=== PATIENT | female | born 1930 | race Caucasian/White ===

== ENCOUNTER → 2016-11-16 | Outpatient (REF) | payer MEDICARE, OTHER ==
[~2016-11-16] MED LIST: /ESOM40CA PO; /FENO48TA PO; ACET650S3 PR; APAP325T PO; ATEN50TA2 PO; ATOR40TA PO; BISO10TA6 PO; BISO5TAB5 PO; CALC650T PO; COUM2TAB10 PO; DELT1TAB PO; DIGO0.12 PO; DULC10SU2 PR; ENEMENE6 PR; FLUO10CA8 PO; FLUO20CA8 PO; GLIP-163 PO; GUAISYP5 PO; HYDR12.55 PO; HYDR12.56 PO; IPRASOL4 NEB; LEVOTAB10 PO; LIPI20TA PO; LISI40TAB PO; LISI5TAB PO; METF850T PO; MILKSUS PO; MULTLIQ7 PO; MULTTAB48 PO; MYLASUS2 PO; NASA1SPR; NITR0.4S14 SL; OMEP40CA2 PO; SALI0.653; VITA10006 PO; VITA500T88 PO; WARF-18 PO; WARF10TA15 PO; WARF4TAB51 PO
[2016-11-16 09:47] LABS: INR 1.69
== END ==
LOC: SKLAB4 09:56
PROVIDERS: ATTEND Family Medicine
DX: I48.91 Unspecified atrial fibrillation (principal)

== ENCOUNTER → 2016-11-23 | Outpatient (REF) ==
[2016-11-23 09:16] LABS: INR 3.33
== END ==
LOC: SKLAB4 09:40
PROVIDERS: ATTEND Family Medicine
DX: I48.91 Unspecified atrial fibrillation (principal)

== ENCOUNTER → 2016-11-30 | Outpatient (REF) ==
[2016-11-30 08:33] LABS: INR 2.07
== END ==
LOC: SKLAB4 09:28
PROVIDERS: ATTEND Family Medicine
DX: I48.91 Unspecified atrial fibrillation (principal)

== ENCOUNTER → 2016-11-30 | Outpatient (REF) | payer MEDICARE, OTHER ==
--- NOTE | 2016-11-30 16:37 | REP ---
LEFT TIBIA FIBULA, FOUR VIEWS: HISTORY: Swelling. There is no acute fracture or dislocation. There is narrowing of the knee joint with associate chondrocalcinosis. There is narrowing of the medial and widening of the superolateral ankle joint space. Soft-tissue swelling is present. IMPRESSION: Degenerative change as described above. Signed by Jatin Schafer MD 11/30/2016 04:38 P
--- NOTE | 2016-12-01 13:08 | REP ---
Left ankle series: Four views. Repeat dictation. History: Swelling. Findings: There is anterolateral soft tissue swelling. There is osteoarthritic narrowing of the medial and posterior aspect of the ankle joint space. Diffuse osteoporosis is noted. Medial and lateral malleolar spurring and talar spurring are seen. No fracture is seen. Vascular calcification is noted and there is a plantar heel spur seen. Impression: No fracture seen. Diffuse osteoporosis and osteoarthritis noted. Soft tissue swelling. Signed by Alex Monk MD 12/01/2016 02:41 P
== END ==
LOC: SKLAB4 15:17
PROVIDERS: ATTEND Family Medicine
DX: R60.9 Edema, unspecified (principal); M81.0 Age-related osteoporosis without current pathological fracture; M17.9 Osteoarthritis of knee, unspecified

== ENCOUNTER → 2016-12-01 | Outpatient (REF) | payer MEDICARE, OTHER | LOC: SKLAB4 15:40 | PROVIDERS: ATTEND Family Medicine | DX: R41.0 Disorientation, unspecified (principal) ==

== ENCOUNTER → 2016-12-07 | Outpatient (REF) | payer MEDICARE, OTHER ==
[2016-12-07 08:50] LABS: INR 1.89
== END ==
LOC: SKLAB4 09:13
PROVIDERS: ATTEND Family Medicine
DX: I48.91 Unspecified atrial fibrillation (principal)

== ENCOUNTER → 2016-12-14 | Outpatient (REF) | payer MEDICARE, OTHER ==
[2016-12-14 08:00] LABS: INR 2.4
== END ==
LOC: SKLAB4 09:22
PROVIDERS: ATTEND Family Medicine
DX: Z51.81 Encounter for therapeutic drug level monitoring (principal); Z79.01 Long term (current) use of anticoagulants

== ENCOUNTER → 2016-12-19 | Outpatient (REF) | payer MEDICARE, OTHER | LOC: SKLAB4 08:14 | PROVIDERS: ATTEND Family Medicine | DX: R41.0 Disorientation, unspecified (principal) ==

== ENCOUNTER → 2016-12-21 | Outpatient (REF) | payer MEDICARE, OTHER ==
[2016-12-21 09:18] LABS: INR 2.34
== END ==
LOC: SKLAB4 11:20
PROVIDERS: ATTEND Family Medicine
DX: I48.91 Unspecified atrial fibrillation (principal); Z51.81 Encounter for therapeutic drug level monitoring; Z79.01 Long term (current) use of anticoagulants

== ENCOUNTER → 2016-12-28 | Outpatient (REF) | payer MEDICARE, OTHER ==
[2016-12-28 09:22] LABS: INR 2.49
== END ==
LOC: SKLAB4 08:50
PROVIDERS: ATTEND Family Medicine
DX: I48.91 Unspecified atrial fibrillation (principal); Z51.81 Encounter for therapeutic drug level monitoring; Z79.01 Long term (current) use of anticoagulants

== ENCOUNTER → 2017-01-04 | Outpatient (REF) | payer MEDICARE, OTHER ==
[2017-01-04 08:25] LABS: INR 3.03
== END ==
LOC: SKLAB4 09:25
PROVIDERS: ATTEND Family Medicine
DX: I48.91 Unspecified atrial fibrillation (principal); Z51.81 Encounter for therapeutic drug level monitoring; Z79.01 Long term (current) use of anticoagulants

== ENCOUNTER → 2017-01-11 | Outpatient (REF) | payer MEDICARE, OTHER ==
[2017-01-11 08:32] LABS: INR 2.98
== END ==
LOC: SKLAB4 09:22
PROVIDERS: ATTEND Family Medicine
DX: Z51.81 Encounter for therapeutic drug level monitoring (principal); Z79.01 Long term (current) use of anticoagulants; I48.91 Unspecified atrial fibrillation

== ENCOUNTER → 2017-01-12 | Outpatient (REF) | payer MEDICARE, OTHER | LOC: SKLAB4 21:13 | PROVIDERS: ATTEND Family Medicine | DX: R30.0 Dysuria (principal) ==

== ENCOUNTER → 2017-01-18 | Outpatient (REF) | payer MEDICARE, OTHER ==
[2017-01-18 08:21] LABS: INR 2.46
== END ==
LOC: SKLAB4 09:19
PROVIDERS: ATTEND Family Medicine
DX: I48.91 Unspecified atrial fibrillation (principal); Z51.81 Encounter for therapeutic drug level monitoring; Z79.01 Long term (current) use of anticoagulants

== ENCOUNTER → 2017-01-25 | Outpatient (REF) | payer MEDICARE, OTHER ==
[2017-01-25 10:57] LABS: INR 2.22
== END ==
LOC: SKLAB4 10:40
PROVIDERS: ATTEND Family Medicine
DX: I48.91 Unspecified atrial fibrillation (principal); Z51.81 Encounter for therapeutic drug level monitoring; Z79.01 Long term (current) use of anticoagulants

== ENCOUNTER → 2017-02-01 | Outpatient (REF) | payer MEDICARE, OTHER ==
[2017-02-01 09:47] LABS: INR 2.19
== END ==
LOC: SKLAB4 06:55
PROVIDERS: ATTEND Family Medicine
DX: I48.91 Unspecified atrial fibrillation (principal); Z51.81 Encounter for therapeutic drug level monitoring; Z79.01 Long term (current) use of anticoagulants; Z79.899 Other long term (current) drug therapy

== ENCOUNTER → 2017-02-02 | Outpatient (REF) | payer MEDICARE, OTHER ==
[2017-02-02 14:52] LABS: MEAN CORPUSCULAR HEMOGLOBIN 28.8 pg (27.0-33.0); MEAN CORPUSCULAR HGB CONC 31.7 g/dl (32.0-36.5); PLATELET COUNT, AUTOMATED 375 k/mm3 (150-450); RED CELL DISTRIBUTION WIDTH 14.1 % (11.5-14.5); WHITE BLOOD COUNT 19.1 K/mm3 (4.0-10.0)
[2017-02-02 15:08] LABS: ALBUMIN 2.6 GM/DL (3.2-5.2); ALBUMIN/GLOBULIN RATIO 0.79 (1.00-1.93); BILIRUBIN,TOTAL 0.3 MG/DL (0.2-1.0); CALCIUM LEVEL 7.8 MG/DL (8.8-10.2); CREATININE FOR GFR 1.78 MG/DL (0.55-1.02); GLOMERULAR FILTRATION RATE 28.6 (>32); POTASSIUM SERUM 4.6 MEQ/L (3.5-5.1); TOTAL PROTEIN 5.9 GM/DL (6.4-8.2)
[2017-02-02 15:50] LABS: BASO # 0.1 K/mm3 (0.0-0.2); BASO % 0.3 % (0.0-1.0); DIFF SLIDE NUMBER 232; EOS % 0.2 % (0.0-3.0); LARGE UNSTAINED CELL # 0.1 K/mm3 (0.0-0.4); LARGE UNSTAINED CELL % 0.6 % (0.0-4.0); LYMPH # 1.6 K/mm3 (1.5-4.5); LYMPH % 7.8 % (24.0-44.0); MONO # 1.1 K/mm3 (0.0-0.8); MONO % 5.5 % (0.0-5.0); NEUTROPHILS # 17.1 K/mm3 (1.8-7.7); NEUTROPHILS % 85.6 % (36.0-66.0)
== END ==
LOC: SKLAB4 11:20
PROVIDERS: ATTEND Family Medicine
DX: R50.9 Fever, unspecified (principal); Z79.899 Other long term (current) drug therapy

== ENCOUNTER → 2017-02-03 | Outpatient (REF) | payer MEDICARE, OTHER ==
--- NOTE | 2017-02-03 10:39 | REP ---
Clinical: Elevated temperature . Comparison: 10/28/2016 . Findings: The mediastinum and cardiac silhouette are stable and within normal limits for portable technique. The lung gilbert demonstrate chronic changes without acute consolidation, effusion, or pneumothorax. Skeletal structures are intact. Impression: Chronic stable changes. No acute cardiopulmonary process. Signed by Long Gayle MD 02/03/2017 10:30 A
== END ==
LOC: SKLAB4 09:19
PROVIDERS: ATTEND Family Medicine
DX: R50.9 Fever, unspecified (principal); I48.91 Unspecified atrial fibrillation; Z51.81 Encounter for therapeutic drug level monitoring; Z79.01 Long term (current) use of anticoagulants

== ENCOUNTER → 2017-02-03 | Outpatient (REF) | payer MEDICARE, OTHER | LOC: SKLAB4 03:20 | PROVIDERS: ATTEND Family Medicine | DX: I48.91 Unspecified atrial fibrillation (principal); Z51.81 Encounter for therapeutic drug level monitoring; Z79.01 Long term (current) use of anticoagulants ==

== ENCOUNTER → 2017-02-08 | Outpatient (REF) | payer MEDICARE, OTHER ==
[2017-02-08 09:20] LABS: INR 3.25
== END ==
LOC: SKLAB4 09:45
PROVIDERS: ATTEND Family Medicine
DX: I48.91 Unspecified atrial fibrillation (principal)

== ENCOUNTER → 2017-02-15 | Outpatient (REF) | payer MEDICARE, OTHER ==
[~2017-02-15] MED LIST changes: +MYLASUS16 PO; -MYLASUS2 PO
[2017-02-15 08:30] LABS: INR 2.95
== END ==
LOC: SKLAB4 09:30
PROVIDERS: ATTEND Family Medicine
DX: I48.91 Unspecified atrial fibrillation (principal); Z51.81 Encounter for therapeutic drug level monitoring; Z79.01 Long term (current) use of anticoagulants

== ENCOUNTER → 2017-02-22 | Outpatient (REF) | payer MEDICARE, OTHER ==
[2017-02-22 09:40] LABS: INR 3.24
== END ==
LOC: SKLAB4 09:18
PROVIDERS: ATTEND Family Medicine
DX: I48.91 Unspecified atrial fibrillation (principal); Z51.81 Encounter for therapeutic drug level monitoring; Z79.01 Long term (current) use of anticoagulants

== ENCOUNTER → 2017-03-01 | Outpatient (REF) | payer MEDICARE, OTHER ==
[2017-03-01 09:09] LABS: INR 2.41
== END ==
LOC: SKLAB4 12:22
PROVIDERS: ATTEND Family Medicine
DX: Z51.81 Encounter for therapeutic drug level monitoring (principal); Z79.01 Long term (current) use of anticoagulants

== ENCOUNTER → 2017-03-08 | Outpatient (REF) | payer MEDICARE, OTHER ==
[2017-03-08 08:40] LABS: INR 2.53
== END ==
LOC: SKLAB4 09:21
PROVIDERS: ATTEND Family Medicine
DX: I48.91 Unspecified atrial fibrillation (principal)

== ENCOUNTER → 2017-03-15 | Outpatient (REF) | payer MEDICARE, OTHER ==
[2017-03-15 10:25] LABS: INR 3.48
== END ==
LOC: SKLAB4 10:45
PROVIDERS: ATTEND Family Medicine
DX: Z51.81 Encounter for therapeutic drug level monitoring (principal); Z79.01 Long term (current) use of anticoagulants; I48.91 Unspecified atrial fibrillation

== ENCOUNTER → 2017-03-22 | Outpatient (REF) | payer MEDICARE, OTHER ==
[2017-03-22 09:23] LABS: INR 2.49
== END ==
LOC: SKLAB4 10:50
PROVIDERS: ATTEND Family Medicine
DX: Z51.81 Encounter for therapeutic drug level monitoring (principal); I48.91 Unspecified atrial fibrillation

== ENCOUNTER → 2017-03-29 | Outpatient (REF) | payer MEDICARE, OTHER ==
[2017-03-29 08:59] LABS: INR 2.4
== END ==
LOC: SKLAB4 10:58
PROVIDERS: ATTEND Family Medicine
DX: Z51.81 Encounter for therapeutic drug level monitoring (principal); Z79.01 Long term (current) use of anticoagulants; I48.91 Unspecified atrial fibrillation

== ENCOUNTER → 2017-04-05 | Outpatient (REF) | payer MEDICARE, OTHER ==
[2017-04-05 09:40] LABS: INR 1.99
== END ==
LOC: SKLAB4 09:51
PROVIDERS: ATTEND Family Medicine
DX: Z51.81 Encounter for therapeutic drug level monitoring (principal); Z79.01 Long term (current) use of anticoagulants; I48.91 Unspecified atrial fibrillation

== ENCOUNTER → 2017-04-12 | Outpatient (REF) | payer MEDICARE, OTHER ==
[2017-04-12 08:47] LABS: INR 1.79
== END ==
LOC: SKLAB4 11:42
PROVIDERS: ATTEND Family Medicine
DX: Z51.81 Encounter for therapeutic drug level monitoring (principal); Z79.01 Long term (current) use of anticoagulants; I48.91 Unspecified atrial fibrillation

== ENCOUNTER → 2017-04-19 | Outpatient (REF) | payer MEDICARE, OTHER ==
[2017-04-19 12:13] LABS: INR 2.03
== END ==
LOC: SKLAB4 09:06
PROVIDERS: ATTEND Family Medicine
DX: I48.91 Unspecified atrial fibrillation (principal)

== ENCOUNTER → 2017-04-24 | Outpatient (REF) | payer MEDICARE, OTHER | LOC: SKLAB4 08:37 | PROVIDERS: ATTEND Family Medicine | DX: R35.0 Frequency of micturition (principal) ==

== ENCOUNTER → 2017-04-26 | Outpatient (REF) | payer MEDICARE, OTHER ==
[2017-04-26 10:43] LABS: INR 1.9
== END ==
LOC: SKLAB4 09:58
PROVIDERS: ATTEND Family Medicine
DX: Z51.81 Encounter for therapeutic drug level monitoring (principal); Z79.01 Long term (current) use of anticoagulants; I48.91 Unspecified atrial fibrillation

== ENCOUNTER → 2017-04-29 | Outpatient (REF) | payer MEDICARE, OTHER ==
[2017-04-29 07:13] LABS: INR 2.16
== END ==
LOC: SKLAB4 10:53
PROVIDERS: ATTEND Family Medicine
DX: I48.91 Unspecified atrial fibrillation (principal)

== ENCOUNTER → 2017-05-03 | Outpatient (REF) | payer MEDICARE, OTHER ==
[2017-05-03 09:46] LABS: INR 2.12
== END ==
LOC: SKLAB4 08:00
PROVIDERS: ATTEND Family Medicine
DX: I48.91 Unspecified atrial fibrillation (principal)

== ENCOUNTER → 2017-05-10 | Outpatient (REF) | payer MEDICARE, OTHER ==
[~2017-05-10] MED LIST changes: -APAP325T PO; +APAP325T4 PO; -COUM2TAB10 PO; +COUM2TAB22 PO; +METF850T4 PO; +SALI0.6523; -SALI0.653
[2017-05-10 08:27] LABS: INR 2.23
== END ==
LOC: SKLAB4 09:52
PROVIDERS: ATTEND Family Medicine
DX: I48.91 Unspecified atrial fibrillation (principal)

== ENCOUNTER → 2017-05-17 | Outpatient (REF) | payer MEDICARE, OTHER ==
[2017-05-17 09:21] LABS: INR 2.58
== END ==
LOC: SKLAB4 09:50
PROVIDERS: ATTEND Family Medicine
DX: I48.91 Unspecified atrial fibrillation (principal)

== ENCOUNTER → 2017-05-24 | Outpatient (REF) | payer MEDICARE, OTHER ==
[2017-05-24 10:34] LABS: INR 2.27
== END ==
LOC: SKLAB4 10:01
PROVIDERS: ATTEND Family Medicine
DX: Z51.81 Encounter for therapeutic drug level monitoring (principal); Z79.01 Long term (current) use of anticoagulants; I48.91 Unspecified atrial fibrillation

== ENCOUNTER → 2017-05-31 | Outpatient (REF) | payer MEDICARE, OTHER ==
[2017-05-31 08:39] LABS: INR 1.94
== END ==
LOC: SKLAB4 10:54
PROVIDERS: ATTEND Family Medicine
DX: Z51.81 Encounter for therapeutic drug level monitoring (principal); Z79.01 Long term (current) use of anticoagulants; I48.91 Unspecified atrial fibrillation

== ENCOUNTER → 2017-06-07 | Outpatient (REF) | payer MEDICARE, OTHER ==
[2017-06-07 08:42] LABS: INR 1.95
== END ==
LOC: SKLAB4 12:55
PROVIDERS: ATTEND Family Medicine
DX: I48.91 Unspecified atrial fibrillation (principal)

== ENCOUNTER → 2017-06-14 | Outpatient (REF) | payer MEDICARE, OTHER ==
[2017-06-14 08:44] LABS: INR 1.7
== END ==
LOC: SKLAB4 11:54
PROVIDERS: ATTEND Family Medicine
DX: Z51.81 Encounter for therapeutic drug level monitoring (principal); Z79.01 Long term (current) use of anticoagulants; I48.91 Unspecified atrial fibrillation

== ENCOUNTER → 2017-06-21 | Outpatient (REF) | payer MEDICARE, OTHER ==
[2017-06-21 09:14] LABS: INR 1.91
== END ==
LOC: SKLAB4 10:41
PROVIDERS: ATTEND Family Medicine
DX: Z51.81 Encounter for therapeutic drug level monitoring (principal); Z79.01 Long term (current) use of anticoagulants; I48.91 Unspecified atrial fibrillation

== ENCOUNTER → 2017-06-28 | Outpatient (REF) | payer MEDICARE, OTHER ==
[2017-06-28 09:20] LABS: INR 3.47
[2017-06-28 09:38] LABS: ALBUMIN 3.1 GM/DL (3.2-5.2); ALBUMIN/GLOBULIN RATIO 0.86 (1.00-1.93); BILIRUBIN,TOTAL 0.2 MG/DL (0.2-1.0); CALCIUM LEVEL 9.1 MG/DL (8.8-10.2); CREATININE FOR GFR 1.8 MG/DL (0.55-1.02); GLOMERULAR FILTRATION RATE 28.2 (>32); TOTAL PROTEIN 6.7 GM/DL (6.4-8.2)
[2017-06-28 09:43] LABS: BASO # 0.1 K/mm3 (0.0-0.2); BASO % 0.6 % (0.0-1.0); EOS # 0.2 K/mm3 (0.0-0.50); LARGE UNSTAINED CELL # 0.1 K/mm3 (0.0-0.4); LARGE UNSTAINED CELL % 0.8 % (0.0-4.0); LYMPH # 1.8 K/mm3 (1.5-4.5); LYMPH % 15.1 % (24.0-44.0); MEAN CORPUSCULAR HEMOGLOBIN 29.5 pg (27.0-33.0); MEAN CORPUSCULAR HGB CONC 32.3 g/dl (32.0-36.5); MEAN CORPUSCULAR VOLUME 91.2 fl (80.0-96.0); MONO # 0.7 K/mm3 (0.0-0.8); MONO % 6.1 % (0.0-5.0); NEUTROPHILS # 8.3 K/mm3 (1.8-7.7); NEUTROPHILS % 75.4 % (36.0-66.0); PLATELET COUNT, AUTOMATED 341 k/mm3 (150-450); RED CELL DISTRIBUTION WIDTH 14.8 % (11.5-14.5)
[2017-06-28 09:44] LABS: POTASSIUM SERUM 5.3 MEQ/L (3.5-5.1)
== END ==
LOC: SKLAB4 10:54
PROVIDERS: ATTEND Family Medicine
DX: Z51.81 Encounter for therapeutic drug level monitoring (principal); Z79.01 Long term (current) use of anticoagulants; I48.91 Unspecified atrial fibrillation; Z79.899 Other long term (current) drug therapy

== ENCOUNTER → 2017-07-05 | Outpatient (REF) | payer MEDICARE, OTHER ==
[2017-07-05 08:45] LABS: INR 2.65
[2017-07-05 08:52] LABS: CALCIUM LEVEL 8.8 MG/DL (8.8-10.2); CREATININE FOR GFR 1.78 MG/DL (0.55-1.02); GLOMERULAR FILTRATION RATE 28.6 (>32)
[2017-07-05 08:56] LABS: POTASSIUM SERUM 5.2 MEQ/L (3.5-5.1)
== END ==
LOC: SKLAB4 09:37
PROVIDERS: ATTEND Family Medicine
DX: Z51.81 Encounter for therapeutic drug level monitoring (principal); Z79.01 Long term (current) use of anticoagulants; I48.91 Unspecified atrial fibrillation

== ENCOUNTER → 2017-07-11 | Outpatient (REF) | payer MEDICARE, OTHER ==
[2017-07-12 08:21] LABS: INR 2.13
== END ==
LOC: SKLAB4 12:27
PROVIDERS: ATTEND Family Medicine
DX: Z51.81 Encounter for therapeutic drug level monitoring (principal); Z79.01 Long term (current) use of anticoagulants; I48.91 Unspecified atrial fibrillation

== ENCOUNTER → 2017-07-19 | Outpatient (REF) | payer MEDICARE, OTHER ==
[2017-07-19 09:05] LABS: INR 1.94
[2017-07-19 09:17] LABS: CALCIUM LEVEL 8.7 MG/DL (8.8-10.2); CREATININE FOR GFR 1.75 MG/DL (0.55-1.02); GLOMERULAR FILTRATION RATE 29.1 (>32); POTASSIUM SERUM 4.6 MEQ/L (3.5-5.1)
== END ==
LOC: SKLAB4 11:02
PROVIDERS: ATTEND Family Medicine
DX: I48.91 Unspecified atrial fibrillation (principal); N18.9 Chronic kidney disease, unspecified

== ENCOUNTER → 2017-07-26 | Outpatient (REF) | payer MEDICARE, OTHER ==
[2017-07-26 10:00] LABS: INR 1.88
== END ==
LOC: SKLAB4 09:34
PROVIDERS: ATTEND Family Medicine
DX: I48.91 Unspecified atrial fibrillation (principal)

== ENCOUNTER → 2017-08-01 | Outpatient (REF) | payer MEDICARE, OTHER | LOC: SKLAB4 22:19 | PROVIDERS: ATTEND Family Medicine | DX: R50.9 Fever, unspecified (principal); R05 Cough ==

== ENCOUNTER → 2017-08-02 | Outpatient (REF) | payer MEDICARE, OTHER ==
[2017-08-02 09:31] LABS: INR 2.33
[2017-08-02 09:40] LABS: CREATININE FOR GFR 1.86 MG/DL (0.55-1.02); GLOMERULAR FILTRATION RATE 27.2 (>32); POTASSIUM SERUM 5.1 MEQ/L (3.5-5.1)
== END ==
LOC: SKLAB4 10:09
PROVIDERS: ATTEND Family Medicine
DX: I48.91 Unspecified atrial fibrillation (principal); E78.5 Hyperlipidemia, unspecified; N18.9 Chronic kidney disease, unspecified

== ENCOUNTER → 2017-08-02 | Outpatient (REF) | payer MEDICARE, OTHER ==
--- NOTE | 2017-08-02 10:28 | REP ---
PA and lateral chest: Comparisons are 02/03/2017 and 10/28/2016. There are no focal infiltrates. On the lateral view the posterior sulci are mildly effaced suggestive of a small bilateral pleural effusions per There is chronic mild elevation of the right hemidiaphragm, unchanged, likely eventration. Cardiac size is mildly enlarged and appears increased from the prior studies. The alon, mediastinum, and bony thorax are unchanged. There is grade 1 compression deformity of the approximate L1 vertebral body, unchanged from 10/28/2016. Impression: Mild cardiomegaly as an interval change. Questionable small bilateral pleural effusions in the posterior sulci. Chronic grade 1 compression deformity of L1. Chronic elevation of the right hemidiaphragm. Signed by Donal Crawford MD 08/02/2017 10:20 A
== END ==
LOC: SKLAB4 10:22
PROVIDERS: ATTEND Family Medicine
DX: R50.9 Fever, unspecified (principal); R05 Cough

== ENCOUNTER → 2017-08-09 | Outpatient (REF) | payer MEDICARE, OTHER ==
[2017-08-09 08:37] LABS: INR 2.99
== END ==
LOC: SKLAB4 12:47
PROVIDERS: ATTEND Family Medicine
DX: I48.91 Unspecified atrial fibrillation (principal)

== ENCOUNTER → 2017-08-16 | Outpatient (REF) | payer MEDICARE, OTHER ==
[2017-08-16 08:52] LABS: INR 3.13
[2017-08-16 09:15] LABS: CALCIUM LEVEL 8.7 MG/DL (8.8-10.2); CREATININE FOR GFR 1.59 MG/DL (0.55-1.02); GLOMERULAR FILTRATION RATE 32.5 (>32); POTASSIUM SERUM 4.7 MEQ/L (3.5-5.1)
== END ==
LOC: SKLAB4 09:50
PROVIDERS: ATTEND Family Medicine
DX: I48.91 Unspecified atrial fibrillation (principal)

== ENCOUNTER → 2017-08-23 | Outpatient (REF) | payer MEDICARE, OTHER ==
[2017-08-23 10:02] LABS: INR 3.31
== END ==
LOC: SKLAB4 09:53
PROVIDERS: ATTEND Family Medicine
DX: I50.9 Heart failure, unspecified (principal)

== ENCOUNTER → 2017-08-30 | Outpatient (REF) | payer MEDICARE, OTHER ==
[2017-08-30 09:19] LABS: INR 3.38
[2017-08-30 09:39] LABS: CALCIUM LEVEL 9.1 MG/DL (8.8-10.2); CREATININE FOR GFR 2.31 MG/DL (0.55-1.02); GLOMERULAR FILTRATION RATE 21.1 (>32)
[2017-08-30 09:43] LABS: POTASSIUM SERUM 5.2 MEQ/L (3.5-5.1)
== END ==
LOC: SKLAB4 09:36
PROVIDERS: ATTEND Family Medicine
DX: Z51.81 Encounter for therapeutic drug level monitoring (principal); Z79.01 Long term (current) use of anticoagulants; I48.91 Unspecified atrial fibrillation

== ENCOUNTER → 2017-08-31 | Outpatient (REF) | payer MEDICARE, OTHER ==
[2017-08-31 09:31] LABS: CREATININE FOR GFR 2.23 MG/DL (0.55-1.02); DIGOXIN LEVEL 0.9 NG/ML (0.5-2.0)
[2017-08-31 09:52] LABS: POTASSIUM SERUM 5.4 MEQ/L (3.5-5.1)
== END ==
LOC: SKLAB4 06:42
PROVIDERS: ATTEND Family Medicine
DX: I48.91 Unspecified atrial fibrillation (principal); N18.9 Chronic kidney disease, unspecified

== ENCOUNTER → 2017-09-03 | Outpatient (REF) | payer MEDICARE, OTHER ==
[2017-09-03 08:21] LABS: CALCIUM LEVEL 9.1 MG/DL (8.8-10.2); CREATININE FOR GFR 2.31 MG/DL (0.55-1.02); GLOMERULAR FILTRATION RATE 21.1 (>32)
== END ==
LOC: SKLAB4 06:47
PROVIDERS: ATTEND Family Medicine
DX: R79.89 Other specified abnormal findings of blood chemistry (principal)

== ENCOUNTER → 2017-09-06 | Outpatient (REF) | payer MEDICARE, OTHER ==
[2017-09-06 15:20] LABS: INR 1.96
== END ==
LOC: SKLAB4 09:08
PROVIDERS: ATTEND Family Medicine
DX: Z51.81 Encounter for therapeutic drug level monitoring (principal); Z79.01 Long term (current) use of anticoagulants; I48.91 Unspecified atrial fibrillation

== ENCOUNTER → 2017-09-10 | Outpatient (REF) | payer MEDICARE, OTHER ==
[2017-09-10 09:45] LABS: INR 1.82
[2017-09-10 09:54] LABS: CALCIUM LEVEL 8.9 MG/DL (8.8-10.2); CREATININE FOR GFR 2.29 MG/DL (0.55-1.02); GLOMERULAR FILTRATION RATE 21.4 (>32); POTASSIUM SERUM 5.1 MEQ/L (3.5-5.1)
== END ==
LOC: SKLAB4 13:28
PROVIDERS: ATTEND Family Medicine
DX: Z51.81 Encounter for therapeutic drug level monitoring (principal); Z79.01 Long term (current) use of anticoagulants

== ENCOUNTER → 2017-09-24 | Outpatient (REF) | payer MEDICARE, OTHER ==
[2017-09-24 10:41] LABS: INR 1.66
== END ==
LOC: SKLAB4 09:24
PROVIDERS: ATTEND Family Medicine
DX: I48.91 Unspecified atrial fibrillation (principal)

== ENCOUNTER → 2017-10-01 | Outpatient (REF) | payer MEDICARE, OTHER ==
[2017-10-01 08:16] LABS: BASO # 0.1 10^3/uL (0.0-0.2); BASO % 0.5 % (0.0-1.0); EOS # 0.2 10^3/uL (0.0-0.50); EOS % 1.4 % (0.0-3.0); IMMATURE GRANULOCYTE % 0.3 % (0-0); LYMPH # 1.7 10^3/uL (1.5-4.5); LYMPH % 14.5 % (24.0-44.0); MEAN CORPUSCULAR HEMOGLOBIN 30.2 pg (27.0-33.0); MEAN CORPUSCULAR HGB CONC 32.8 g/dl (32.0-36.5); MONO # 0.6 10^3/uL (0.0-0.8); MONO % 5.1 % (0.0-5.0); NEUTROPHILS # 9.3 10^3/uL (1.8-7.7); NEUTROPHILS % 78.2 % (36.0-66.0); PLATELET COUNT, AUTOMATED 330 10^3/uL (150-450); RED CELL DISTRIBUTION WIDTH 13.9 % (11.5-14.5); WHITE BLOOD COUNT 11.9 10^3/uL (4.0-10.0)
[2017-10-01 08:18] LABS: INR 1.72
[2017-10-01 08:53] LABS: ALBUMIN 3.1 GM/DL (3.2-5.2); ALBUMIN/GLOBULIN RATIO 0.97 (1.00-1.93); BILIRUBIN,TOTAL 0.4 MG/DL (0.2-1.0); CALCIUM LEVEL 8.9 MG/DL (8.8-10.2); CREATININE FOR GFR 1.97 MG/DL (0.55-1.02); DIGOXIN LEVEL 0.5 NG/ML (0.5-2.0); GLOMERULAR FILTRATION RATE 25.4 (>32); POTASSIUM SERUM 4.9 MEQ/L (3.5-5.1); TOTAL PROTEIN 6.3 GM/DL (6.4-8.2)
== END ==
LOC: SKLAB4 12:38
PROVIDERS: ATTEND Family Medicine
DX: I48.91 Unspecified atrial fibrillation (principal); E11.9 Type 2 diabetes mellitus without complications; D64.9 Anemia, unspecified

== ENCOUNTER → 2017-10-08 | Outpatient (REF) | payer MEDICARE, OTHER ==
[2017-10-08 10:00] LABS: CALCIUM LEVEL 9.1 MG/DL (8.8-10.2); CREATININE FOR GFR 2.1 MG/DL (0.55-1.02); GLOMERULAR FILTRATION RATE 23.6 (>32); POTASSIUM SERUM 4.7 MEQ/L (3.5-5.1)
[2017-10-08 10:09] LABS: INR 2.25
== END ==
LOC: SKLAB4 10:18
PROVIDERS: ATTEND Family Medicine
DX: I48.91 Unspecified atrial fibrillation (principal)

== ENCOUNTER → 2017-10-15 | Outpatient (REF) | payer MEDICARE, OTHER ==
[2017-10-15 09:22] LABS: INR 2.48
[2017-10-15 09:33] LABS: CALCIUM LEVEL 8.7 MG/DL (8.8-10.2); CREATININE FOR GFR 2.13 MG/DL (0.55-1.02); GLOMERULAR FILTRATION RATE 23.2 (>32)
== END ==
LOC: SKLAB4 12:32
PROVIDERS: ATTEND Family Medicine
DX: I48.91 Unspecified atrial fibrillation (principal); R79.89 Other specified abnormal findings of blood chemistry; Z51.81 Encounter for therapeutic drug level monitoring; Z79.01 Long term (current) use of anticoagulants

== ENCOUNTER → 2017-10-17 | Outpatient (REF) | payer MEDICARE, OTHER | LOC: SKLAB4 12:23 | PROVIDERS: ATTEND Family Medicine | DX: R53.83 Other fatigue (principal) ==

== ENCOUNTER → 2017-10-22 | Outpatient (REF) | payer MEDICARE, OTHER ==
[2017-10-22 09:52] LABS: CALCIUM LEVEL 8.8 MG/DL (8.8-10.2); CREATININE FOR GFR 2.21 MG/DL (0.55-1.02); GLOMERULAR FILTRATION RATE 22.3 (>32); INR 1.87; POTASSIUM SERUM 4.9 MEQ/L (3.5-5.1)
== END ==
LOC: SKLAB4 09:14
PROVIDERS: ATTEND Family Medicine
DX: I48.91 Unspecified atrial fibrillation (principal)

== ENCOUNTER → 2017-10-29 | Outpatient (REF) | payer MEDICARE, OTHER ==
[2017-10-29 08:54] LABS: MEAN CORPUSCULAR HGB CONC 32.4 g/dl (32.0-36.5); MEAN CORPUSCULAR VOLUME 92.8 fl (80.0-96.0); PLATELET COUNT, AUTOMATED 381 10^3/uL (150-450); RED CELL DISTRIBUTION WIDTH 13.8 % (11.5-14.5); WHITE BLOOD COUNT 13.2 10^3/uL (4.0-10.0)
[2017-10-29 09:14] LABS: INR 2.44
[2017-10-29 09:35] LABS: CALCIUM LEVEL 9.1 MG/DL (8.8-10.2); CREATININE FOR GFR 2.41 MG/DL (0.55-1.02); GLOMERULAR FILTRATION RATE 20.1 (>32); POTASSIUM SERUM 4.8 MEQ/L (3.5-5.1)
== END ==
LOC: SKLAB4 09:44
PROVIDERS: ATTEND Family Medicine
DX: I48.91 Unspecified atrial fibrillation (principal); Z79.899 Other long term (current) drug therapy

== ENCOUNTER → 2017-10-31 | Outpatient (REF) | payer MEDICARE, OTHER ==
[2017-10-31 08:58] LABS: INR 2.93
--- NOTE | 2017-10-31 19:32 | REP ---
LEFT WRIST: Five views of the left wrist are performed. There is no acute fracture or dislocation. There is mild joint space narrowing and subchondral sclerosis at the radiocarpal joint with mild chondrocalcinosis. There is mild diffuse narrowing of the intercarpal joints and moderate narrowing of the joint between the trapezium and base of first metacarpal with subchondral sclerosis and spurring. IMPRESSION: Degenerative changes without fracture or dislocation. Signed by Donal Vargas MD 11/01/2017 08:30 P
== END ==
LOC: SKLAB4 07:54
PROVIDERS: ATTEND Family Medicine
DX: R22.32 Localized swelling, mass and lump, left upper limb (principal); I48.91 Unspecified atrial fibrillation

== ENCOUNTER → 2017-11-06 | Outpatient (REF) | payer MEDICARE, OTHER ==
[2017-11-06 11:50] LABS: INR 2.87
[2017-11-06 12:03] LABS: CALCIUM LEVEL 8.4 MG/DL (8.8-10.2); CREATININE FOR GFR 2.2 MG/DL (0.55-1.02); GLOMERULAR FILTRATION RATE 22.4 (>32); POTASSIUM SERUM 4.8 MEQ/L (3.5-5.1)
== END ==
LOC: SKLAB4 10:36
PROVIDERS: ATTEND Family Medicine
DX: I48.91 Unspecified atrial fibrillation (principal)

== ENCOUNTER → 2017-11-13 | Outpatient (REF) | payer MEDICARE, OTHER ==
[2017-11-13 08:59] LABS: INR 2.62; PROTHROMBIN TIME 29.1 SECONDS (12.4-14.5)
[2017-11-13 09:05] LABS: ANION GAP 11 MEQ/L (8-16); BLOOD UREA NITROGEN 33 MG/DL (7-18); CALCIUM LEVEL 8.6 MG/DL (8.8-10.2); CARBON DIOXIDE LEVEL 28 MEQ/L (21-32); CHLORIDE LEVEL 97 MEQ/L (98-107); CREATININE FOR GFR 2.07 MG/DL (0.55-1.02); POTASSIUM SERUM 4.6 MEQ/L (3.5-5.1); SODIUM LEVEL 136 MEQ/L (136-145)
[2017-11-13 09:08] LABS: GLUCOSE, FASTING 411 MG/DL (83-110)
[2017-11-13 12:48] LABS: BEDSIDE GLUCOSE CONFIRMATION 539 MG/DL (LESS THAN 200)
== END ==
LOC: SKLAB4 09:56
DX: I48.91 Unspecified atrial fibrillation (principal); Z79.899 Other long term (current) drug therapy
CPT/HCPCS: 82947

== ENCOUNTER → 2017-11-19 | Outpatient (REF) | payer MEDICARE, OTHER ==
[2017-11-19 08:41] LABS: INR 1.98; PROTHROMBIN TIME 23.2 SECONDS (12.4-14.5)
== END ==
LOC: SKLAB4 13:45
DX: Z51.81 Encounter for therapeutic drug level monitoring (principal); Z79.01 Long term (current) use of anticoagulants; I48.91 Unspecified atrial fibrillation
CPT/HCPCS: 36415

== ENCOUNTER → 2017-11-26 | Outpatient (REF) | payer MEDICARE, OTHER ==
[2017-11-26 10:14] LABS: HEMATOCRIT 36.6 % (36.0-47.0); HEMOGLOBIN 11.9 g/dl (12.0-16.0); MEAN CORPUSCULAR HEMOGLOBIN 30.2 pg (27.0-33.0); MEAN CORPUSCULAR HGB CONC 32.5 g/dl (32.0-36.5); MEAN CORPUSCULAR VOLUME 92.9 fl (80.0-96.0); PLATELET COUNT, AUTOMATED 340 10^3/uL (150-450); RED BLOOD COUNT 3.94 10^6/uL (4.00-5.40); RED CELL DISTRIBUTION WIDTH 13.5 % (11.5-14.5); WHITE BLOOD COUNT 12.5 10^3/uL (4.0-10.0)
[2017-11-26 10:26] LABS: INR 1.66; PROTHROMBIN TIME 20.1 SECONDS (12.4-14.5)
[2017-11-26 11:21] LABS: ANION GAP 10 MEQ/L (8-16); BLOOD UREA NITROGEN 34 MG/DL (7-18); CARBON DIOXIDE LEVEL 28 MEQ/L (21-32); CHLORIDE LEVEL 99 MEQ/L (98-107); CREATININE FOR GFR 2.27 MG/DL (0.55-1.02); DIGOXIN LEVEL 0.7 NG/ML (0.5-2.0); GLOMERULAR FILTRATION RATE 21.6 (>32); GLUCOSE, FASTING 216 MG/DL (83-110); POTASSIUM SERUM 4.5 MEQ/L (3.5-5.1); SODIUM LEVEL 137 MEQ/L (136-145)
== END ==
LOC: SKLAB4 12:14
DX: I48.91 Unspecified atrial fibrillation (principal)
CPT/HCPCS: 80162

== ENCOUNTER → 2017-12-03 | Outpatient (REF) | payer MEDICARE, OTHER ==
[2017-12-03 09:36] LABS: ANION GAP 9 MEQ/L (8-16); BLOOD UREA NITROGEN 35 MG/DL (7-18); CARBON DIOXIDE LEVEL 27 MEQ/L (21-32); CHLORIDE LEVEL 100 MEQ/L (98-107); CREATININE FOR GFR 2.28 MG/DL (0.55-1.02); GLOMERULAR FILTRATION RATE 21.5 (>32); GLUCOSE, FASTING 195 MG/DL (83-110); SODIUM LEVEL 136 MEQ/L (136-145)
[2017-12-03 09:46] LABS: INR 1.37; PROTHROMBIN TIME 17.1 SECONDS (12.4-14.5)
[2017-12-03 09:47] LABS: POTASSIUM SERUM 5.4 MEQ/L (3.5-5.1)
== END ==
LOC: SKLAB4 09:44
DX: Z79.01 Long term (current) use of anticoagulants (principal)
CPT/HCPCS: 36415

== ENCOUNTER → 2017-12-04 | Outpatient (REF) | payer MEDICARE, OTHER ==
[2017-12-04 08:16] LABS: ANION GAP 8 MEQ/L (8-16); BLOOD UREA NITROGEN 38 MG/DL (7-18); CALCIUM LEVEL 9.1 MG/DL (8.8-10.2); CARBON DIOXIDE LEVEL 29 MEQ/L (21-32); CHLORIDE LEVEL 101 MEQ/L (98-107); CREATININE FOR GFR 2.35 MG/DL (0.55-1.02); GLOMERULAR FILTRATION RATE 20.7 (>32); GLUCOSE, FASTING 203 MG/DL (70-100); POTASSIUM SERUM 4.7 MEQ/L (3.5-5.1); SODIUM LEVEL 138 MEQ/L (136-145)
== END ==
LOC: SKLAB4 07:30
DX: Z00.00 Encounter for general adult medical examination without abnormal findings (principal)
CPT/HCPCS: 36415

== ENCOUNTER → 2017-12-10 | Outpatient (REF) | payer MEDICARE, OTHER ==
[2017-12-10 10:16] LABS: INR 2.16; PROTHROMBIN TIME 24.8 SECONDS (12.4-14.5)
[2017-12-10 10:29] LABS: ANION GAP 12 MEQ/L (8-16); BLOOD UREA NITROGEN 33 MG/DL (7-18); CALCIUM LEVEL 8.3 MG/DL (8.8-10.2); CARBON DIOXIDE LEVEL 27 MEQ/L (21-32); CHLORIDE LEVEL 98 MEQ/L (98-107); CREATININE FOR GFR 2.19 MG/DL (0.55-1.30); GLOMERULAR FILTRATION RATE 22.5 (>32); GLUCOSE, FASTING 331 MG/DL (70-100); POTASSIUM SERUM 4.7 MEQ/L (3.5-5.1); SODIUM LEVEL 137 MEQ/L (136-145)
== END ==
LOC: SKLAB4 09:32
DX: I48.91 Unspecified atrial fibrillation (principal); N18.9 Chronic kidney disease, unspecified
CPT/HCPCS: 36415

== ENCOUNTER → 2017-12-17 | Outpatient (REF) | payer MEDICARE, OTHER ==
[2017-12-17 10:19] LABS: INR 1.95; PROTHROMBIN TIME 22.9 SECONDS (12.4-14.5)
[2017-12-17 10:33] LABS: ANION GAP 7 MEQ/L (8-16); BLOOD UREA NITROGEN 32 MG/DL (7-18); CALCIUM LEVEL 8.6 MG/DL (8.8-10.2); CARBON DIOXIDE LEVEL 29 MEQ/L (21-32); CHLORIDE LEVEL 101 MEQ/L (98-107); GLOMERULAR FILTRATION RATE 22.4 (>32); GLUCOSE, FASTING 261 MG/DL (70-100); POTASSIUM SERUM 4.7 MEQ/L (3.5-5.1); SODIUM LEVEL 137 MEQ/L (136-145)
== END ==
LOC: SKLAB5 09:59
DX: I48.91 Unspecified atrial fibrillation (principal); N18.9 Chronic kidney disease, unspecified
CPT/HCPCS: 36415

== ENCOUNTER → 2017-12-24 | Outpatient (REF) | payer MEDICARE, OTHER ==
[2017-12-24 09:28] LABS: INR 2.11; PROTHROMBIN TIME 24.4 SECONDS (12.4-14.5)
[2017-12-24 09:52] LABS: ANION GAP 7 MEQ/L (8-16); BLOOD UREA NITROGEN 34 MG/DL (7-18); CALCIUM LEVEL 8.4 MG/DL (8.8-10.2); CARBON DIOXIDE LEVEL 29 MEQ/L (21-32); CHLORIDE LEVEL 103 MEQ/L (98-107); GLUCOSE, FASTING 189 MG/DL (70-100); POTASSIUM SERUM 4.7 MEQ/L (3.5-5.1); SODIUM LEVEL 139 MEQ/L (136-145)
== END ==
LOC: SKLAB4 11:14
DX: I48.91 Unspecified atrial fibrillation (principal); N18.9 Chronic kidney disease, unspecified
CPT/HCPCS: 36415

== ENCOUNTER → 2017-12-31 | Outpatient (REF) | payer MEDICARE, OTHER ==
[2017-12-31 08:18] LABS: INR 2.06; PROTHROMBIN TIME 23.9 SECONDS (12.4-14.5)
[2017-12-31 08:29] LABS: ANION GAP 9 MEQ/L (8-16); BLOOD UREA NITROGEN 35 MG/DL (7-18); CALCIUM LEVEL 8.6 MG/DL (8.8-10.2); CARBON DIOXIDE LEVEL 29 MEQ/L (21-32); CHLORIDE LEVEL 101 MEQ/L (98-107); CREATININE FOR GFR 2.13 MG/DL (0.55-1.30); GLOMERULAR FILTRATION RATE 23.2 (>32); GLUCOSE, FASTING 145 MG/DL (70-100); POTASSIUM SERUM 4.7 MEQ/L (3.5-5.1); SODIUM LEVEL 139 MEQ/L (136-145)
== END ==
LOC: SKLAB4 09:44
DX: I48.91 Unspecified atrial fibrillation (principal); N18.9 Chronic kidney disease, unspecified
CPT/HCPCS: 80048

== ENCOUNTER → 2018-01-07 | Outpatient (REF) | payer MEDICARE, OTHER ==
[2018-01-07 08:02] LABS: HEMATOCRIT 33.4 % (36.0-47.0); HEMOGLOBIN 10.9 g/dl (12.0-16.0); MEAN CORPUSCULAR HEMOGLOBIN 30.6 pg (27.0-33.0); MEAN CORPUSCULAR HGB CONC 32.6 g/dl (32.0-36.5); MEAN CORPUSCULAR VOLUME 93.8 fl (80.0-96.0); PLATELET COUNT, AUTOMATED 335 10^3/uL (150-450); RED BLOOD COUNT 3.56 10^6/uL (4.00-5.40); RED CELL DISTRIBUTION WIDTH 12.9 % (11.5-14.5); WHITE BLOOD COUNT 10.2 10^3/uL (4.0-10.0)
[2018-01-07 08:15] LABS: INR 2.48; PROTHROMBIN TIME 27.8 SECONDS (12.4-14.5)
[2018-01-07 08:47] LABS: ANION GAP 6 MEQ/L (8-16); BLOOD UREA NITROGEN 31 MG/DL (7-18); CALCIUM LEVEL 8.4 MG/DL (8.8-10.2); CARBON DIOXIDE LEVEL 32 MEQ/L (21-32); CHLORIDE LEVEL 103 MEQ/L (98-107); CREATININE FOR GFR 2.02 MG/DL (0.55-1.30); DIGOXIN LEVEL 0.3 NG/ML (0.5-2.0); GLOMERULAR FILTRATION RATE 24.7 (>32); GLUCOSE, FASTING 104 MG/DL (70-100); POTASSIUM SERUM 4.7 MEQ/L (3.5-5.1); SODIUM LEVEL 141 MEQ/L (136-145)
== END ==
LOC: SKLAB4 10:56
DX: I48.91 Unspecified atrial fibrillation (principal); I50.9 Heart failure, unspecified
CPT/HCPCS: 80162

== ENCOUNTER → 2018-01-09 | Outpatient (REF) | payer MEDICARE, OTHER ==
[2018-01-09 08:22] LABS: HEMATOCRIT 34.6 % (36.0-47.0); HEMOGLOBIN 11.2 g/dl (12.0-16.0); MEAN CORPUSCULAR HEMOGLOBIN 30.4 pg (27.0-33.0); MEAN CORPUSCULAR HGB CONC 32.4 g/dl (32.0-36.5); PLATELET COUNT, AUTOMATED 348 10^3/uL (150-450); RED BLOOD COUNT 3.68 10^6/uL (4.00-5.40); RED CELL DISTRIBUTION WIDTH 13.2 % (11.5-14.5); WHITE BLOOD COUNT 10.6 10^3/uL (4.0-10.0)
[2018-01-09 09:00] LABS: DIGOXIN LEVEL 0.8 NG/ML (0.5-2.0)
== END ==
LOC: SKLAB4 10:32
DX: I48.91 Unspecified atrial fibrillation (principal); D64.9 Anemia, unspecified
CPT/HCPCS: 80162

== ENCOUNTER → 2018-01-14 | Outpatient (REF) | payer MEDICARE, OTHER ==
[2018-01-14 09:49] LABS: INR 2.64; PROTHROMBIN TIME 29.3 SECONDS (12.4-14.5)
[2018-01-14 10:07] LABS: ANION GAP 9 MEQ/L (8-16); BLOOD UREA NITROGEN 31 MG/DL (7-18); CALCIUM LEVEL 8.5 MG/DL (8.8-10.2); CARBON DIOXIDE LEVEL 28 MEQ/L (21-32); CHLORIDE LEVEL 100 MEQ/L (98-107); CREATININE FOR GFR 2.14 MG/DL (0.55-1.30); GLOMERULAR FILTRATION RATE 23.1 (>32); GLUCOSE, FASTING 285 MG/DL (70-100); POTASSIUM SERUM 5.1 MEQ/L (3.5-5.1); SODIUM LEVEL 137 MEQ/L (136-145)
== END ==
LOC: SKLAB4 09:51
DX: I50.9 Heart failure, unspecified (principal); I48.91 Unspecified atrial fibrillation
CPT/HCPCS: 36415

== ENCOUNTER → 2018-01-21 | Outpatient (REF) | payer MEDICARE, OTHER ==
[2018-01-21 09:18] LABS: INR 2.29; PROTHROMBIN TIME 26.1 SECONDS (12.4-14.5)
[2018-01-21 09:37] LABS: ANION GAP 7 MEQ/L (8-16); BLOOD UREA NITROGEN 31 MG/DL (7-18); CALCIUM LEVEL 8.9 MG/DL (8.8-10.2); CARBON DIOXIDE LEVEL 29 MEQ/L (21-32); CHLORIDE LEVEL 100 MEQ/L (98-107); CREATININE FOR GFR 1.99 MG/DL (0.55-1.30); GLOMERULAR FILTRATION RATE 25.1 (>32); GLUCOSE, FASTING 247 MG/DL (70-100); SODIUM LEVEL 136 MEQ/L (136-145)
== END ==
LOC: SKLAB4 09:43
DX: I48.91 Unspecified atrial fibrillation (principal); I50.9 Heart failure, unspecified
CPT/HCPCS: 36415

== ENCOUNTER → 2018-01-28 | Outpatient (REF) | payer MEDICARE, OTHER ==
[2018-01-28 08:25] LABS: BASO # 0.1 10^3/uL (0.0-0.2); BASO % 0.7 % (0.0-1.0); EOS # 0.3 10^3/uL (0.0-0.50); EOS % 2.7 % (0.0-3.0); HEMATOCRIT 32.3 % (36.0-47.0); HEMOGLOBIN 10.8 g/dl (12.0-16.0); IMMATURE GRANULOCYTE % 0.4 % (0-3.0); LYMPH # 1.8 10^3/uL (1.5-4.5); LYMPH % 17.4 % (24.0-44.0); MEAN CORPUSCULAR HEMOGLOBIN 31.4 pg (27.0-33.0); MEAN CORPUSCULAR HGB CONC 33.4 g/dl (32.0-36.5); MEAN CORPUSCULAR VOLUME 93.9 fl (80.0-96.0); MONO # 0.8 10^3/uL (0.0-0.8); MONO % 7.8 % (0.0-5.0); NEUTROPHILS # 7.5 10^3/uL (1.8-7.7); PLATELET COUNT, AUTOMATED 321 10^3/uL (150-450); RED BLOOD COUNT 3.44 10^6/uL (4.00-5.40); RED CELL DISTRIBUTION WIDTH 13.2 % (11.5-14.5); WHITE BLOOD COUNT 10.5 10^3/uL (4.0-10.0)
[2018-01-28 08:33] LABS: PROTHROMBIN TIME 27.1 SECONDS (12.4-14.5)
[2018-01-28 08:50] LABS: ESTIMATED AVERAGE GLUCOSE 252 MG/DL (60-110); HEMOGLOBIN A1c 10.4 %
[2018-01-28 09:04] LABS: ALBUMIN 3.1 GM/DL (3.2-5.2); ALBUMIN/GLOBULIN RATIO 0.89 (1.00-1.93); ALKALINE PHOSPHATASE 72 U/L (45-117); ALT/SGPT 17 U/L (12-78); ANION GAP 11 MEQ/L (8-16); AST/SGOT 13 U/L (7-37); BILIRUBIN,TOTAL 0.3 MG/DL (0.2-1.0); BLOOD UREA NITROGEN 36 MG/DL (7-18); CARBON DIOXIDE LEVEL 27 MEQ/L (21-32); CHLORIDE LEVEL 100 MEQ/L (98-107); CREATININE FOR GFR 2.32 MG/DL (0.55-1.30); DIGOXIN LEVEL 0.8 NG/ML (0.5-2.0); GLUCOSE, FASTING 194 MG/DL (70-100); SODIUM LEVEL 138 MEQ/L (136-145); TOTAL PROTEIN 6.6 GM/DL (6.4-8.2)
== END ==
LOC: SKLAB4 09:27
DX: I48.91 Unspecified atrial fibrillation (principal); N18.9 Chronic kidney disease, unspecified; E11.9 Type 2 diabetes mellitus without complications
CPT/HCPCS: 80162

== ENCOUNTER → 2018-02-04 | Outpatient (REF) | payer MEDICARE, OTHER ==
[2018-02-04 09:31] LABS: INR 1.83; PROTHROMBIN TIME 21.7 SECONDS (12.4-14.5)
[2018-02-04 09:54] LABS: ANION GAP 9 MEQ/L (8-16); BLOOD UREA NITROGEN 39 MG/DL (7-18); CALCIUM LEVEL 8.1 MG/DL (8.8-10.2); CARBON DIOXIDE LEVEL 27 MEQ/L (21-32); CHLORIDE LEVEL 99 MEQ/L (98-107); CREATININE FOR GFR 2.48 MG/DL (0.55-1.30); GLOMERULAR FILTRATION RATE 19.5 (>32); GLUCOSE, FASTING 341 MG/DL (70-100); POTASSIUM SERUM 4.9 MEQ/L (3.5-5.1); SODIUM LEVEL 135 MEQ/L (136-145)
== END ==
LOC: SKLAB4 09:54
DX: I48.91 Unspecified atrial fibrillation (principal); N18.9 Chronic kidney disease, unspecified
CPT/HCPCS: 36415

== ENCOUNTER → 2018-02-11 | Outpatient (REF) | payer MEDICARE, OTHER ==
[2018-02-11 08:17] LABS: ANION GAP 6 MEQ/L (8-16); BLOOD UREA NITROGEN 37 MG/DL (7-18); CALCIUM LEVEL 8.5 MG/DL (8.8-10.2); CARBON DIOXIDE LEVEL 28 MEQ/L (21-32); CHLORIDE LEVEL 106 MEQ/L (98-107); CREATININE FOR GFR 2.26 MG/DL (0.55-1.30); GLOMERULAR FILTRATION RATE 21.7 (>32); GLUCOSE, FASTING 118 MG/DL (70-100); INR 1.96; POTASSIUM SERUM 5.1 MEQ/L (3.5-5.1); SODIUM LEVEL 140 MEQ/L (136-145)
== END ==
LOC: SKLAB4 10:11
DX: I48.91 Unspecified atrial fibrillation (principal); N18.9 Chronic kidney disease, unspecified
CPT/HCPCS: 36415

== ENCOUNTER → 2018-02-26 | Outpatient (REF) | payer MEDICARE, OTHER ==
[2018-02-26 07:52] LABS: INR 2.03; PROTHROMBIN TIME 23.6 SECONDS (12.4-14.5)
== END ==
LOC: SKLAB4 07:43
DX: I48.91 Unspecified atrial fibrillation (principal); I50.9 Heart failure, unspecified
CPT/HCPCS: 36415

== ENCOUNTER → 2018-03-01 | Outpatient (REF) | payer MEDICARE, OTHER | LOC: SKLAB4 09:19 | DX: R19.7 Diarrhea, unspecified (principal) ==